=== PATIENT | female | born 1980 | race Caucasian/White ===

== ENCOUNTER 2017-12-12 01:44 | Emergency (ER) | payer SELFPAY ==
[2017-12-12] MEDS ORDERED: ACETAMINOPHEN 325 MG TABLET PO ONE (01:53)
--- NOTE | 2017-12-12 02:58 | ER Document Report ---
ED Extremity Problem, Upper - General Chief Complaint: Shoulder Pain Stated Complaint: LEFT SHOULDER PAIN Time Seen by Provider: 12/12/17 02:42 Mode of Arrival: Ambulatory Information source: Patient Notes: 37-year-old female presents to ED for complaint of pain in her left shoulder since last Monday. She states she woke up at 2:00 in the morning screaming in pain. She states this hurt off and on since then but she has not followed up with any doctor. She states that Monday the pain did not hurt as much during the day but when she went to lay down tonight to go to bed the pain was excruciating. She states Monday night it was excruciating all night and she was screaming during the night. She states she has been taken 800 mg of ibuprofen every 10 hours with no improvement. 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 TRAVEL OUTSIDE OF THE [place] IN LAST 30 DAYS: No - HPI Patient complains to provider of: Left, Shoulder Onset: Last week Recent injury: No Where: Home Quality of pain: Sharp, Throbbing Severity of pain: Moderate Pain Level: 3 Exacerbated by: Movement, Exertion Relieved by: Nothing Similar symptoms previously: Yes Recently seen / treated by doctor: No - Related Data Allergies/Adverse Reactions: No Known Allergies Allergy (Unverified 10/27/11 09:33) Past Medical History - General Information source: Patient - Social History Smoking Status: Never Smoker Cigarette use (# per day): No Chew tobacco use (# tins/day): No Smoking Education Provided: No Frequency of alcohol use: None Drug Abuse: None Lives with: Spouse/Significant other Family History: Reviewed & Not Pertinent Patient has suicidal ideation: No Patient has homicidal ideation: No - Past Medical History Cardiac Medical History: Reports: Other - Mitral valve prolapse Pulmonary Medical History: Reports: None EENT Medical History: Reports: None Neurological Medical History: Reports: Hx Migraine Endocrine Medical History: Reports: None Renal/ Medical History: Reports: None Malignancy Medical History: Reports: None GI Medical History: Reports: None Musculoskeltal Medical History: Reports None Skin Medical History: Reports Other - Sebaceous cyst Psychiatric Medical History: Reports: None Traumatic Medical History: Reports: None Infectious Medical History: Reports: None Past Surgical History: Reports: Other - Patient cyst removed - Immunizations Hx Diphtheria, Pertussis, Tetanus Vaccination: Yes Review of Systems - Review of Systems Notes: Constitutional: [PRESENT: as per HPI. ABSENT: chills, fever(s), headache(s), weight gain, weight loss] Eyes: [ABSENT: visual disturbances] Ears: [ABSENT: hearing changes] Cardiovascular: [ABSENT: chest pain, dyspnea on exertion, edema, orthropnea, palpitations] Respiratory: [ABSENT: cough, hemoptysis] Gastrointestinal: [ABSENT: abdominal pain, constipation, diarrhea, hematemesis, hematochezia, nausea, vomiting] Genitourinary: [ABSENT: dysuria, hematuria] Musculoskeletal: Pain to left shoulder with decreased range of motion due to pain. When encouraged she can move through all planes. Integumentary: [ABSENT: rash, wounds] Neurological: [ABSENT: abnormal gait, abnormal speech, confusion, dizziness, focal weakness, syncope] Psychiatric: [ABSENT: anxiety, depression, homicidal ideation, suicidal ideation ] Endocrine: [ABSENT: cold intolerance, heat intolerance, menstrual abnormalities , polydipsia, polyuria] Hematologic/Lymphatic: [ABSENT: easy bleeding, easy bruising, lymphadenopathy] Physical Exam - Vital signs Vitals: Temp Pulse Resp BP Pulse Ox 98.6 F 78 22 H 147/91 H 100 12/12/17 01:52 12/12/17 01:52 12/12/17 01:52 12/12/17 01:52 12/12/17 01:52 - Notes Notes: PHYSICAL EXAMINATION: GENERAL: 37-year-old female well-appearing, well-nourished and in no acute distress. HEAD: Atraumatic, normocephalic. EYES: Pupils equal round and reactive to light, extraocular movements intact, conjunctiva are normal. ENT: Nares patent, oropharynx clear without exudates. Moist mucous membranes. NECK: Normal range of motion, supple without lymphadenopathy LUNGS: Breath sounds clear to auscultation bilaterally and equal. No wheezes rales or rhonchi. HEART: Regular rate and rhythm without murmurs ABDOMEN: Soft, nontender, nondistended abdomen. No guarding, no rebound. No masses appreciated. Female : deferred Musculoskeletal: Pain limits range of motion to left shoulder, no pitting or edema. No cyanosis. Tender to palpation to upper shoulder and about 3 inches down the deltoid. Patient hesitant to move shoulder full range of motion but can went encouraged. NEUROLOGICAL: Cranial nerves grossly intact. Normal speech, normal gait. Normal sensory, motor exams PSYCH: Normal mood, normal affect. SKIN: Warm, Dry, normal turgor, no rashes or lesions noted. Course - Re-evaluation Re-evalutation: 12/12/17 03:44 Chest x-rays with patient. Patient was instructed on use of ice, range of motion, and use of ibuprofen. Patient was also given instructions to follow-up with orthopedics. Patient was given the name and number for care in [facility] for her elevated blood pressure. Patient was given a work note for Monday and Monday. Patient verbalized understanding of instructions. Patient denied any other questions or concerns. - Vital Signs Vital signs: Temp Pulse Resp BP Pulse Ox 98.6 F 78 22 H 147/91 H 100 12/12/17 01:52 12/12/17 01:52 12/12/17 01:52 12/12/17 01:52 12/12/17 01:52 - Diagnostic Test Radiology reviewed: Image reviewed, Reports reviewed Discharge - Discharge Clinical Impression: Left shoulder pain Qualifiers: Chronicity: acute Qualified Code(s): M25.512 - Pain in left shoulder Condition: Stable Disposition: HOME, SELF-CARE Instructions: Use of Nboo-Pav-Gnfipux Ibuprofen ([facility]) Additional Instructions: You were seen tonight for left shoulder pain for the last week intermittently. Shoulder x-ray is negative for any injuries or abnormalities radiologically. You will need to move the shoulder and all planes as I instructed you. Listed below some shoulder exercises that should help you to ensure you move these in all planes to prevent a frozen shoulder. Also given you a name and number for orthopedics to follow-up with for your shoulder pain. Ibuprofen every 8 hours as we discussed. Ice will help with your pain before range of motion. Ice Packs Apply ice packs frequently against the painful area. Many different schedules are recommended, such as "20 minutes on, 20 minutes off" or "one hour ice, two hours rest." If you need to work, you may need to go longer between ice treatments. You should plan to have the area ice packed AT LEAST one fourth of the time. The ice should be applied over the wrap, tape, or splint, or over a layer of cloth -- not directly against the skin. Some ice bags have a built-in cloth and can be put directly on the skin. Exercise Program for the Shoulder Since the shoulder moves in so many directions, the joint attachment is weak. Muscles provide most of the stability to the shoulder. You must exercise your shoulder to prevent painful instability or stiffening. PASSIVE - These may be begun within a few days of the injury. While standing, lean forward, allowing the arm to hang down towards the floor. Move the arm in small circles while slowly twisting your chest towards and away from the hanging arm. Do this for one minute. ACTIVE - These may be performed when the doctor gives permission. Begin with the arms at the sides. Raise the arms forward (shoulder's width apart) until they reach shoulder level. Then slowly swing both arms back until they are aiming straight out away from each other. Then bring them forward again, and finally, lower them to your sides. Repeat 20 to 30 times. As you improve, put weights in your hands for the exercise. Start with one pound, and work up to 10 pounds. Never use more than is comfortable. Athletes may work up to 30 pounds. FOLLOW-UP CARE: If you have been referred to a physician for follow-up care, call the physician s office for an appointment as you were instructed or within the next two days. If you experience worsening or a significant change in your symptoms, notify the physician immediately or return to the Emergency Department at any time for re-evaluation. Forms: Elevated Blood Pressure, Return to Work Referrals: ALFONSO GARCIA MD [ACTIVE STAFF] - Follow up as needed
--- NOTE | 2017-12-12 03:28 | RADIOLOGY REPORT (SQ) ---
EXAM DESCRIPTION: SHOULDER LEFT 2 OR MORE VIEWS CLINICAL HISTORY: pain increases with movement COMPARISON: None. FINDINGS: 3 views of the left shoulder. No acute fracture or dislocation. Normal osseous mineralization. No fracture visualized ribs. No left apical pneumothorax. No abnormalities of the left acromioclavicular joint identified. IMPRESSION: No acute fracture or dislocation.
[2017-12-12 03:53] VITALS: BP 118/87
== END 2017-12-12 03:40 | disposition home or self-care (01) ==
LOC: ER 01:44
DX: M25.512 Pain in left shoulder (principal); X58.XXXA Exposure to other specified factors, initial encounter
CPT/HCPCS: 99283

== ENCOUNTER → 2018-03-15 | Outpatient (CLI) | payer OTHER ==
--- NOTE | 2018-03-16 09:07 | RADIOLOGY REPORT (SQ) ---
EXAM DESCRIPTION: MRI LT UPPER JOINT WITHOUT COMPLETED DATE/TIME: 03/15/2018 8:57 pm REASON FOR STUDY: INCOMPLETE ROTATOR CUFF TEAR OR RUPTURE OF LEFT SHOULDER, NOT SPECIFIED M75.112 INCOMPLETE ROTATR-CUFF TEAR/RUPTR OF L SHOULDER, NOT COMPARISON: Radiographs 12/12/2017 TECHNIQUE: Left shoulder images acquired and stored on PACS. Multiplanar imaging to include fat sens itive sequences such as T1, water sensitive sequences such as FST2/STIR, cartilage sensitive sequence s such as FSPD/gradient-echo sequences. LIMITATIONS: None. FINDINGS: BONE MARROW AND CORTEX: No worrisome bone lesions or marrow replacement. No occult fractur es. JOINT OR BURSAL EFFUSION: There is focal edema/ fluid along the base of the acromion. No underlying fracture or significant bursitis otherwise. GLENO-HUMERAL ARTICULATION: Normal articulation. No subluxation. No cystic change. No osteophytes or cartilage loss. ACROMION AND AC JOINT: Soft tissue edema adjacent to the base of the acromion as above. No underlyin g fracture or marrow edema. AC joint intact. Type 1 acromion without spurs or significant subacromi al compromise. ROTATOR CUFF AND INTERVAL: Suspect mild edema in the supraspinatus and infraspinatus muscle bellies. Slight loss of muscle bulk may be present in the supraspinatus but no avtar fatty replacement. LABRUM AND BICEPS LABRAL COMPLEX: No overt slap tear or biceps disease. REMAINDER OF LABRUM AND IGHL : No gross tear or paralabral cyst formation. Labral evaluation is less than optimal without joint distention. No thickening of IGHL to suggest adhesive capsulitis. PERIARTICULAR AND ADJACENT SOFT TISSUES: As above. No mass. No axillary adenopathy. OTHER: No other significant finding. IMPRESSION: 1. Subtle edema in the supraspinatus and infraspinatus muscle belly is may reflect dener vation injury. Strain is in the differential. Cuff tendons look intact, no suggestion of tear. No gross mass or ganglion appreciated. 2. Labrum and biceps tendon intact. TECHNICAL DOCUMENTATION: JOB ID: [id number] [employer]- All Rights Reserved Reading location - IP/workstation name: [email or web address]
== END ==
LOC: RAD 18:48
PROVIDERS: ATTEND Orthopaedic Surgery
DX: M75.112 Incomplete rotator cuff tear or rupture of left shoulder, not specified as traumatic (principal)